=== PATIENT | male | born 1995 | race Caucasian/White ===

== ENCOUNTER 2016-12-27 19:51 | Emergency (ER) | payer BC ==
[~2016-12-27] VITALS: Ht 188 cm; Wt 66.1 kg
[2016-12-27 19:55] VITALS: TEMP 37; Ht 188 cm; Wt 66.1 kg
[2016-12-27] MEDS ORDERED: XYLOCAINE 1%/SOD BICARB 20 ML VIAL INFIL ONE (20:00)
--- NOTE | 2016-12-27 20:34 | EMERGENCY ROOM VISIT NOTE ---
ED Visit Note First contact with patient: 19:58 CHIEF COMPLAINT: Chin laceration HISTORY OF PRESENT INJURY: This 21-year-old male presents the ER with chief complaint of a laceration to his chin. The patient states that he slipped on the ice and fell striking his chin on the ground. The patient denies any loose teeth or jaw pain. The patient denies any bleeding disorders. The patient's tetanus is up-to-date. REVIEW OF SYSTEMS: 6 system review was performed and was negative unless stated otherwise in history of present illness. PMH: The patient is healthy; there is no significant medical or surgical history. SOCIAL HISTORY: Patient is a [employer]. The patient denies tobacco use but admits to occasional alcohol use PHYSICAL EXAM: Vital Signs: Were reviewed Reviewed Nurse's notes. GEN.: 21-year -old white male appears in no acute distress. MENTAL Status: The patient is alert and is cooperative. EYES Pupils are round, equal, and react to light. FACE: There is a 3 cm laceration noted on the mentum of the mandible whose edges are gaping widely apart. There is no foreign material in the wound and no active bleeding. The mouth can open fully and there is no mandibular or neck tenderness. EMERGENCY DEPARTMENT COURSE: The patient was evaluated. Wound Repair: Complexity: Basic. Verbal consent was obtained after the risks and benefits were explained, including but not limited to bleeding, scarring, infection, pain, and bone/joint /nerve damage. The skin was prepped with betadine and a sterile field set. The wound was anesthetized with 3.2 ml of 1% buffered lidocaine. With direct pressure the bleeding subsided. Copious irrigation was performed using sterile saline. The wound was explored for foreign bodies and none found. Debridement was not performed. The deep tissue was approximated with 2 interrupted 6-0 Vicryl sutures The wound edges were then approximated using 6-0 Ethilon with 9 simple interrupted sutures. Hemostasis and excellent approximation was achieved. Antibacterial ointment and a sterile dressing applied. Detailed wound care instructions and signs and symptoms of infection reviewed with the patient. No complications and the patient tolerated the procedure well. DIAGNOSIS: 3 cm chin laceration DISCHARGE INSTRUCTIONS: Do not shave until sutures are removed. Keep wound clean and dry. No water on the area for 12-24 hrs then no soaking until sutures removed. Do not allow any crusting or dried blood to accumulate on sutures. If this occurs, use a 1:1 solution of hydrogen peroxide/water on a Q- tip to clean the wound. Use an antibiotic ointment for 3-4 days, then let wound dry. Suture removal in 7 days. Follow up sooner for any signs of infection (increasing redness, swelling, drainage). Ice and elevate for swelling and pain. Tylenol 650 mg every 6 hrs for pain. Vital Signs Date Time Temp Pulse Resp B/P Pulse Ox O2 Delivery O2 Flow Rate FiO2 12/27/16 19:55 37.0 72 16 148/97 98 Room Air Medications Administered Medications (Trade) Dose Ordered Sig/Eulalia Route Start Time Stop Time Status Last Admin Dose Admin Lidocaine HCl (Buffered Lidocaine 1% Inj) 20 ml NOW ONCE INFIL 12/27/16 20:00 12/27/16 20:01 DC 12/27/16 20:00 20 ML Departure Information Referrals No Doctor, Assigned (PCP) Patient Instructions My [facility]
[2016-12-27 20:44] VITALS: BP 117/69; PULSE 75; O2SAT 98
== END 2016-12-27 20:45 | disposition home or self-care (01) ==
LOC: C.EDB 19:54 → C.EDD 20:45
DX: S01.81XA Laceration without foreign body of other part of head, initial encounter (principal); W01.0XXA Fall on same level from slipping, tripping and stumbling without subsequent striking against object, initial encounter